=== PATIENT | female | born 1965 | race Caucasian/White ===

== ENCOUNTER 2024-08-22 21:34 | Emergency (ER) | payer MEDICAID, SELFPAY ==
[2024-08-22 21:35] VITALS: BMI 30.1
[2024-08-22 21:45] VITALS: BP 167/91; PULSE 95; RESP 25; TEMP 37.3; O2SAT 86
--- NOTE | 2024-08-22 21:45 | XR_ITS ---
Examination: AP chest single view Technique one AP portable upright chest single view Exam date and time: August 22, 2024 10:00 PM Comparison July 27, 2024 Indications: Shortness of breath today. Findings: Normal heart size No pneumonia or pulmonary edema Left axillary surgical clips Moderate osteopenia Impression: No pneumonia or pulmonary edema
--- NOTE | 2024-08-22 21:46 | EDRME_ITS ---
Rapid Medical Screening Exam [facility] Arrival date/time: 08/22/24 21:34 59F with history of COPD, DM, HTN, and breast cancer (in remission) presents to ED with 2 days of cough and SOB. Chief Complaint: Shortness of Breath/Dyspnea Vital signs: Vital Signs Temperature 99.1 F 08/22/24 21:45 Pulse Rate 95 08/22/24 21:45 Respiratory Rate 25 H 08/22/24 21:45 Blood Pressure 167/91 H 08/22/24 21:45 Pulse Oximetry (%) 86 L 08/22/24 21:45 Oxygen Delivery Method Room Air 08/22/24 21:45
[2024-08-22] MEDS: ALBUTEROL/IPRATROPIUM (Duoneb) RT SOL 3 ML NEBU 6 ML INH (22:08)
[2024-08-22 22:11] VITALS: PULSE 89; RESP 22; O2SAT 99
[2024-08-22 22:25] LABS: Basophils % (Auto) 0 % (0-2.5); Eosinophils # (Auto) 0.2 Thou/mm3 (0.0-0.5); Eosinophils % (Auto) 2 % (0-10); Hematocrit 36.6 % (36.0-46.0); Hemoglobin 11.6 g/dL (12.0-16.0); Immature Granulocytes % (Auto) 1 % (0-0); Immature Granulocytes Auto 0.04 Thou/mm3 (0.00-0.00); Lymphocytes # (Auto) 1.2 Thou/mm3 (1.0-4.8); Lymphocytes % (Auto) 16 % (10-50); Mean Corpuscular HGB Conc 31.7 g/dl (31.0-37.0); Mean Corpuscular Hemoglobin 27.6 pg (25.0-35.0); Mean Corpuscular Volume 87 fL (80-100); Monocytes # (Auto) 0.5 Thou/mm3 (0.0-0.8); Monocytes % (Auto) 7 % (0-12); Neutrophils # (Auto) 5.6 Thou/mm3 (1.8-7.7); Neutrophils % (Auto) 74 % (37-80); Nucleated Red Blood Cell % 0 /100 WBC (0); Platelet Count 274 Thou/mm3 (140-440); RDW Standard Deviation 44.4 fL (36.4-46.3); Red Blood Count 4.21 Miln/mm3 (4.00-5.20); White Blood Count 7.6 Thou/mm3 (3.6-11.0)
[2024-08-22 22:40] LABS: Alanine Aminotransferase 26 U/L (10-49); Albumin, Serum 4.5 gm/dL (3.5-5.0); Alkaline Phosphatase 107 U/L (46-116); Anion Gap 5 (7-16); Aspartate Amino Transferase 23 U/L (0-34); BUN/Creatinine Ratio 17 Ratio (12-20); Bilirubin,Total 0.3 mg/dL (0.3-1.2); Blood Urea Nitrogen 10 mg/dL (9-23); Calcium 10.2 mg/dL (8.3-10.6); Calcium (Corrected) 10.2 mg/dL (8.5-10.1); Carbon Dioxide 32.7 mMol/L (20.0-31.0); Chloride 102 mMol/L (98-107); Creatinine (Component) 0.6 mg/dL (0.6-1.3); Estimated Creatinine Clearance 101.7 mL/min (>60); Globulin 2.2 gm/dL (2.3-3.5); Glucose 141 mg/dL (74-106); Osmolality,Calculated 280 (275-295); Potassium 4.4 mMol/L (3.4-5.1); Sodium 140 mMol/L (136-145); Total Protein 6.7 gm/dL (5.7-8.2); Troponin I < 0.020 ng/mL (0.0-0.045); eGFR > 60 See Note
[2024-08-22] MEDS: DEXAMETHASONE SOD PHOS INJ 10 MG/ML VIAL PO (23:10)
[2024-08-22 23:18] VITALS: O2SAT 95
[2024-08-23 00:53] VITALS: BP 142/79; PULSE 97; RESP 22; TEMP 37.3; O2SAT 91
[2024-08-23 04:20] VITALS: BP 161/89; PULSE 87; RESP 20; TEMP 37.2; O2SAT 92
== END 2024-08-23 04:37 | disposition left against medical advice (07) ==
PROVIDERS: Physician Assistant; Emergency Provider Emergency Medicine; PCP Physician Assistant
DX: R06.02 Shortness of breath (principal); R05.9 Cough, unspecified; J44.9 Chronic obstructive pulmonary disease, unspecified; E11.9 Type 2 diabetes mellitus without complications; I10 Essential (primary) hypertension; Z85.3 Personal history of malignant neoplasm of breast; Z53.29 Procedure and treatment not carried out because of patient's decision for other reasons
CPT/HCPCS: 36415; 71045; 80053; 84484; 85025; 87400; 87811; 93005; 94640; 99281; A9270; J1100

== ENCOUNTER 2024-08-24 16:15 | Emergency (ER) | payer MEDICAID, SELFPAY ==
[2024-08-24 16:21] VITALS: BP 114/73; PULSE 84; RESP 19; TEMP 36.8; O2SAT 93
--- NOTE | 2024-08-24 17:31 | PC.NURSE ---
Call pt from lobby and outside no answer @[id number]
--- NOTE | 2024-08-24 17:46 | PC.NURSE ---
Call pt from lobby and outside no answer @[id number]
--- NOTE | 2024-08-24 18:02 | PC.NURSE ---
Call pt from lobby and outside no answer @[phone]
== END 2024-08-24 18:02 | disposition left against medical advice (07) ==
LOC: SERX 17:37
PROVIDERS: Emergency Provider Emergency Medicine
DX: Z53.21 Procedure and treatment not carried out due to patient leaving prior to being seen by health care provider (principal)
CPT/HCPCS: 99281

== ENCOUNTER 2025-04-29 10:44 | Emergency (ER) | payer MEDICAID, SELFPAY ==
[2025-04-29 10:45] VITALS: BMI 29.6
[2025-04-29 10:54] VITALS: BP 149/83; PULSE 88; RESP 19; TEMP 36.7; O2SAT 94
--- NOTE | 2025-04-29 13:03 | XR_ITS ---
Examination: Abdomen AP single view Technique: AP portable supine abdomen, single view Exam date and time: 2022 2024 1313 hours INDICATIONS: Constipation one month. FINDINGS: Moderate stool throughout the colon. No obstruction. No free air The osseous structures are intact Pelvic phleboliths IMPRESSION: Moderate stool throughout the colon
--- NOTE | 2025-04-29 13:06 | PD.EDADULT ---
ED General RME/HPI General Chief complaint: General Adult/Misc Complain Stated complaint: CONSTIPATION X 1 MONTH; SENT BY [facility] PROVIDER Time Seen by Provider: 04/29/25 13:02 Source: patient Arrival date/time: 04/29/25 10:44 Mode of arrival: ambulatory Limitations: no limitations RME / HPI RME / HPI narrative: 59-year-old female presents to ED with a complaint of abdominal pain and no BM x 1 month. She describes her stools as the size or diameter of her pinky finger when they do occur. Patient has flatulence and describes it as a lot. Patient denies vomiting however complains of burping Onset (ago): month(s) (X 1) Related Data Home Medications ?Medication ?Instructions ?Recorded ?Confirmed ergocalciferol (vitamin D2) 1,250 1 cap PO QWEEK 06/12/19 09/23/23 mcg (50,000 unit) capsule (Vitamin D2) aspirin 81 mg chewable tablet 10 mg PO QDAY 12/17/22 09/23/23 atorvastatin 40 mg tablet 40 mg PO QDAY 12/17/22 09/23/23 glimepiride 1 mg tablet 1 mg PO QDAY 12/17/22 09/23/23 sitagliptin phosphate 100 mg 100 mg PO QDAY 12/17/22 09/23/23 tablet (Januvia) Previous Rx's ?Medication ?Instructions ?Recorded anastrozole 1 mg tablet 1 mg PO QDAY #30 tabs 01/05/19 metformin 1,000 mg tablet 1,000 mg PO BID #60 tabs 01/05/19 pen needle, diabetic 29 gauge x #30 ea 12/12/19/ (1st Tier Unifine Pentips) albuterol sulfate 90 mcg/actuation 2 inh inhalation Q4H PRN shortness 04/04/20 breath activated powder inhaler of breath or wheezing #1 ea fluticasone 250 mcg-salmeterol 50 1 inh inhalation BID #60 ea 04/04/20 mcg/dose blistr powdr for inhalation (Advair Diskus) doxycycline hyclate 100 mg capsule 100 mg PO BID #14 caps 08/04/24 prednisone 50 mg tablet 50 mg PO QDAY #4 tabs 08/04/24 Allergies Allergy/AdvReac Type Severity Reaction Status Date / Time No Known Allergies Allergy Verified 04/29/25 10:47 Review of Systems Constitutional Constitutional: Reports system reviewed and no additional complaints, except as documented Eyes Eyes: Reports system reviewed and no additional complaints, except as documented, Denies dry eyes, Denies exophthalmos and Reports floaters Cardiovascular Cardiovascular: Denies chest pain with activity and Denies claudication ED Exam General Limitations: Present no limitations General appearance: Present alert and in no apparent distress Head Head exam: Present atraumatic Eye Eye exam: Present normal appearance and EOMI ENT ENT exam: Present normal exam, normal oropharynx and mucous membranes moist Neck Neck exam: Present normal inspection, full ROM and trachea midline Chest Chest inspection: Present normal inspection and symmetric chest wall rise Respiratory Respiratory exam: Present normal lung sounds bilaterally Cardiovascular Cardiovascular exam: Present regular rate, normal rhythm and normal heart sounds Abdominal Exam Abdominal exam: Present soft and normal bowel sounds Rectal Exam Rectal exam: Present deferred Extremities Exam Extremities exam: Present normal inspection and full ROM Back Exam Back exam: Present normal inspection and full ROM Neurological Exam Neurological exam: Present alert and oriented X3 Psychiatric Psychiatric exam: Present normal affect and normal mood Skin Skin exam: Present warm, dry, intact and normal color Course Course Course Narrative: Patient will have a 1 view flatplate x-ray. Quality Measures none Orders Category Date Time Status Enema Administration NOW Care 04/29/25 15:38 Active XR abdomen 1V Stat Exams 04/29/25 13:03 Completed Ordered Vital Signs Vital signs: Vital Signs Temperature 98.1 F 04/29/25 10:54 Pulse Rate 88 04/29/25 10:54 Respiratory Rate 19 04/29/25 10:54 Blood Pressure 149/83 H 04/29/25 10:54 Pulse Oximetry (%) 94 L 04/29/25 10:54 Oxygen Delivery Method Nasal Cannula 04/29/25 10:54 Oxygen Flow Rate 1 04/29/25 10:54 Pulse ox on room air is 94% Discharge Plan Plan Patient Disposition: HOME (Self Care) Discharge Disposition comment: Patient discharged in no apparent distress Patient condition on transfer: Stable Prescriptions/Referrals Prescriptions/Med Rec: No Action ergocalciferol (vitamin D2) [Vitamin D2] 50,000 unit Capsule 1 cap PO QWEEK Rx Instructions: on sundays (DME) pen needle, diabetic [1st Tier Unifine Pentips] 29 gauge x 1/2 needle See Dose Instructions .ROUTE .MEDSUPPLY Qty: 30 0RF Dose Instruction: As directed Rx Instructions: As directed anastrozole 1 mg Tablet 1 mg PO QDAY Qty: 30 0RF metformin 1,000 mg Tablet 1,000 mg PO BID Qty: 60 0RF albuterol sulfate 90 mcg/actuation aerosol powdr breath activated 2 inh IH Q4H PRN (Reason: shortness of breath or wheezing) Qty: 1 2RF fluticasone propion-salmeterol [Advair Diskus] 250-50 mcg/dose blister with device 1 inh IH BID Qty: 60 1RF atorvastatin 40 mg tablet 40 mg PO QDAY glimepiride 1 mg tablet 1 mg PO QDAY aspirin 81 mg tablet,chewable 10 mg PO QDAY Patient Comments: CHEW & SWALLOW 1 TABLET BY MOUTH ONCE DAILY Januvia 100 mg tablet 100 mg PO QDAY Patient Comments: TAKE 1 TABLET BY MOUTH EVERY DAY doxycycline hyclate 100 mg capsule 100 mg PO BID Qty: 14 0RF prednisone 50 mg tablet 50 mg PO QDAY Qty: 4 0RF Referrals: Marquez Herrera MD [Primary Care Provider] - In 1 week Problem List Clinical Impression: Constipation Patient/Caregiver Discharge Instructions Print Language: Korean Stand Alone Forms: [place] Award Info., Patient Portal Info Letter MDM Narrative Sign out note: N/A [facility] hospital course: Patient had a fleets enema which yielded little to no stool, fluid of the fleets enema were expelled. No blood or mucus was seen. Quite possible the patient has gastric paresis that she is a diabetic who does not control her diabetes. She also tells me she has a poor diet. Patient will be discharged and she is to primary care physician this week for follow-up to today's visit. She may return here if worse or not better. Procedures done or offered: N/A Clinical Information Provided by patient Medical Records Reviewed None N/A Meds/Rx Considered, not Ordered None Describe details: N/A Labs/Rad/Tests considered, not Ordered None Chronic Illness/Social Conditions which may negatively complicate care or outcome(s)-explain: None or not applicable Add or document further as needed: N/A EKG EKG not done Lab Interpretation Labs: none Imaging Imaging interpretation: none Medication Administration(s) none Diagnosis Differential diagnosis: SBO versus pancreatitis versus gastro enteritis versus gastric obstruction Most likely dx, and/or detailed dx discussion: NA Dispositon Disposition: Discharge Home
== END 2025-04-29 16:40 | disposition home or self-care (01) ==
PROVIDERS: Emergency Provider Physician Assistant; PCP Family Medicine
DX: K59.00 Constipation, unspecified (principal)
CPT/HCPCS: 74018; 99283

== ENCOUNTER → 2025-05-02 | Outpatient (CLI) | payer MEDICAID, SELFPAY ==
--- NOTE | 2025-05-02 10:00 | XR_ITS ---
Examination: MRI left ankle, without contrast Date and time of exam: May 02, 2025, 0957 hrs. Indications: Palpable lump and tenderness in the ankle 15 years Technique: Multiple axial sagittal and coronal images of the left ankle have been obtained with the Siemens high-resolution 1.5 Marii MRI scanner. Images obtained include T2-weighted fat-suppressed sagittal sections, TR 3500, TE 46, T2 weighted coronal fat suppressed images, TR 3050, TE 84, T2-weighted transverse fat suppressed images, TR 3260, TE 63, proton density transverse images, TR 4720 TE 46, and T1 weighted coronal images, TR 560, TE 13. Findings: Adequate marrow signal Mild thickening of the Achilles tendon Mild plantar fasciitis Cystlike area medial ankle at the level of distal tibia, 11 x 7 x 10 mm Negative for sinus Tarsi syndrome No occult fracture or avascular necrosis Anterior posterior inferior tibiofibular ligaments talar fibular ligaments intact Mild diffuse tendinitis Extensor tendons intact Impression: Complex cyst in the soft tissue medial ankle at the level of the distal tibia, 11 x 7 x 10 mm, recommend this patient return for MR ankle films post intravenous contrast to exclude cystic tumor
== END | disposition home or self-care (01) ==
LOC: SMRI 09:45
PROVIDERS: Referring Provider Podiatrist; Visit Provider Podiatrist
DX: R22.42 Localized swelling, mass and lump, left lower limb (principal)
CPT/HCPCS: 73721

== ENCOUNTER → 2025-06-22 | Outpatient (CLI) | payer MEDICAID, SELFPAY ==
--- NOTE | 2025-06-22 08:30 | XR_ITS ---
Examination: Screening digital mammography, bilateral Computer aided detection 3-D breast Tomosynthesis, bilateral Date and time of exam: June 22, 2025 0838 hours Compared to mammograms dating to September 06, 2020 Indication: Screening Technique: Nonmagnified MLO, CC views of the breasts to been obtained, reconstructed from 3-D Tomosynthesis images. R2 computer aided detection program utilized for evaluation of suspicious masses and/or abnormal calcifications. 3-D Tomosynthesis images obtained. Findings: The breasts are heterogeneously dense which, which may obscure small masses Extensive scar formation surgical clips left breast again noted Breast biopsy marker upper outer right breast with adjacent microcalcifications There are 2 foci of microcalcifications the upper outer quadrant right breast Impression: BI-RADS Category 0: Incomplete: Need additional imaging evaluation Recommend follow-up magnification spot compression views upper outer quadrant right breast to assess 2 foci of additional microcalcifications separate from the breast biopsy marker as well as bilateral breast sonography to complete the workup
== END | disposition home or self-care (01) ==
LOC: CDIM 08:27
PROVIDERS: Referring Provider Physician Assistant; Visit Provider Physician Assistant
DX: Z12.31 Encounter for screening mammogram for malignant neoplasm of breast (principal); R92.0 Mammographic microcalcification found on diagnostic imaging of breast; R92.8 Other abnormal and inconclusive findings on diagnostic imaging of breast
CPT/HCPCS: 77063; 77067

== ENCOUNTER → 2025-08-21 | Outpatient (CLI) | payer MEDICAID, SELFPAY ==
--- NOTE | 2025-08-21 10:45 | XR_ITS ---
Examination: Breast ultrasound complete, bilateral Date and time of exam: August 21, 2025, 11 3 hours INDICATIONS: Personal history left breast cancer with lumpectomy 2017, negative right breast biopsy 2021, mammogram 06/22/2025 2 foci of microcalcifications upper outer quadrant right breast Technique: Real-time grayscale ultrasonographic imaging bilateral breasts, including all 4 quadrants as well as nipple retroareolar and axillary regions. Findings: Sonographic images right and left breast demonstrate no cystic or solid masses Scarring left breast 12 o'clock position IMPRESSION: BI-RADS Category 2: Benign findings
--- NOTE | 2025-08-21 11:45 | XR_ITS ---
Examination: Diagnostic digital mammography, unilateral, right Computer aided detection 3-D breast Tomosynthesis, unilateral Date and time of exam: August 21, 2025, 1134 hours INDICATIONS: 2 foci of microcalcifications upper outer quadrant right breast on mammogram 06/22/2025 Technique: Nonmagnified MLO, CC views of the right breast have been obtained, reconstructed from 3-D Tomosynthesis images. R2 computer aided detection program utilized for evaluation of suspicious masses and/or abnormal calcifications. 3-D Tomosynthesis images obtained. Findings: The breasts are heterogeneously dense, which may obscure small masses 2 foci of suspicious microcalcifications are confirmed in the upper outer right breast separate from the breast biopsy marker Impression: BI-RADS category 4: Suspicious for malignancy Biopsy of 2 foci of suspicious microcalcifications upper outer right breast needed to exclude breast carcinoma, calcifications are amenable to stereotactic breast biopsy
== END | disposition home or self-care (01) ==
PROVIDERS: PCP Physician Assistant; Referring Provider Physician Assistant; Visit Provider Physician Assistant
DX: R92.341 Mammographic extreme density, right breast (principal); R92.0 Mammographic microcalcification found on diagnostic imaging of breast; Z85.3 Personal history of malignant neoplasm of breast
CPT/HCPCS: 76641; 77061; 77065; G0279